=== PATIENT | male | born 1960 | race Caucasian/White ===

== ENCOUNTER 2019-11-16 15:33 | Emergency (ER) | payer BC ==
[2019-11-16] MEDS ORDERED: Ondansetron 4 MG Tab.DIS PO ONE (16:00)
--- NOTE | 2019-11-16 19:52 | ER ---
REASON FOR EMERGENCY ROOM VISIT: Nosebleed and nausea. HISTORY: This 59-year-old man had 2 episodes of nosebleeds earlier this week once on Monday, the other on Monday. Each of them lasted about half hour in duration. He has not had many episodes of epistaxis in the past, and he is not on any anticoagulants. He does take aspirin occasionally for arthritis type complaints. He does have a history of hypertension and states that his blood pressure has tended to run in the 140-50 range systolic over 90s at home. Occasionally, his diastolic pressure does get up into the low 100s. Today, he thinks he swallowed a fair amount of blood, and this has caused him to experience some nausea. He denies any abdominal pain. He has not had any diarrhea. PAST MEDICAL HISTORY: Hypertension. MEDICATIONS: Amlodipine 2.5 mg p.o. daily. REVIEW OF SYSTEMS: Pertinent positives and negatives as listed in the HPI. PHYSICAL EXAMINATION: GENERAL: He is alert, in no acute distress. The epistaxis apparently has stopped by now. VITAL SIGNS: His blood pressure initially was 159/109. On recheck it was 145/97. His heart rate is 111, respirations 20, O2 sats 95% on room air. HEENT: Head is normocephalic. TMs are normal. No conjunctivitis is noted. I examined both nasal cavities with speculum. I could easily see on the left side where there were 2 areas with tiny bits of adherent overlying clot and some mild erythema around these. One of these or both of these are probable source of his epistaxis. I cauterized these with silver nitrate using 2 sticks, and no oozing was noted. The remainder of the nasal examination was unremarkable. Oropharynx is normal. NECK: Supple. No adenopathy. CHEST: Clear to auscultation. CARDIAC: Regular rate without murmur. ABDOMEN: Nondistended, soft, and nontender. IMPRESSION: 1. Epistaxis. 2. Hypertension, possibly poorly controlled. 3. Nausea possibly secondary to ingestion of blood. PLAN: He was given Zofran 4 mg IM x1, and that seemed to settle things down. He was instructed regarding some general preventative measures and how to manage it should he have a rebleed while at home. He should follow up with his physician and continue to maintain monitoring his blood pressure and optimally keep a log of his blood pressure readings while at home. He understands. All questions were answered. He agrees with this plan. LAVERNE/LISA /[id number]
--- NOTE | 2020-01-02 08:46 | ER ---
ADDENDUM: DATE OF SERVICE: 11/16/2019 REASON FOR EMERGENCY ROOM VISIT: Bloody nose. DISCHARGE DIAGNOSIS: Anterior epistaxis. EMERGENCY ROOM COURSE: This 59-year-old gentleman came in with a several-hour history of bloody nose that he could not get to stop with direct pressure. PAST MEDICAL HISTORY: Reviewed. Please see electronic medical record. MEDICATIONS: Reviewed. Please see electronic medical record. PHYSICAL EXAMINATION: HEENT: The patient had epistaxis from the anterior chamber of his nose on the left side. This was visualized and cauterized with silver nitrate. Pressure was applied and after a period of time, I re-examined him and all bleeding had stopped. IMPRESSION: Anterior chamber epistaxis, left side. PLAN: He was discharged with further recommendations regarding any recurrence of bleeding. He understood these and agrees with this plan. All questions were answered. LEONEL /[id number]
== END 2019-11-16 16:18 | disposition home or self-care (01) ==
LOC: LB.ED 15:33
DX: R04.0 Epistaxis (principal); I10 Essential (primary) hypertension; R11.0 Nausea; M19.90 Unspecified osteoarthritis, unspecified site; Z79.82 Long term (current) use of aspirin; Z79.899 Other long term (current) drug therapy
CPT/HCPCS: 30901; 30905; 99283; A9270